=== PATIENT | female | born 1990 | race Caucasian/White ===

== ENCOUNTER → 2022-02-27 | Day surgery (SDC) | payer OTHER ==
[~2022-02-27] MED LIST: COLACE 100MG C100 MG PO; HYDROCODON-ACE1 EAC2 PO; IBUPROFEN800 MG PO; LAMOTRIGINE150 MG PO; PRENATAL VITAM1 EAC3 PO; REXULTI1 MG PO; ROXICODONE5 MG PO; VISTARIL25 MG PO; ZOLOFT100 MG PO
== END | disposition home or self-care (01) ==
LOC: OR 10:15
DX: S82.851A Displaced trimalleolar fracture of right lower leg, initial encounter for closed fracture (principal); X58.XXXA Exposure to other specified factors, initial encounter; G89.18 Other acute postprocedural pain; F17.210 Nicotine dependence, cigarettes, uncomplicated; F41.9 Anxiety disorder, unspecified; F32.A Depression, unspecified; Z79.899 Other long term (current) drug therapy
CPT/HCPCS: 73600; 76000; 84703; C1713; J0690; J1100; J2001; J2250; J2370; J2405; J2704; J2795; J3010

== ENCOUNTER → 2022-03-11 | Outpatient (CLI) | payer OTHER ==
[~2022-03-11] MED LIST changes: +CEPHALEXIN500 MG PO; +ENDOCET 10-3251 EACH PO
== END ==
LOC: KOH-I 12:00
DX: S82.851A Displaced trimalleolar fracture of right lower leg, initial encounter for closed fracture (principal)
CPT/HCPCS: 73700

== ENCOUNTER → 2022-03-13 | Day surgery (SDC) | payer OTHER | END | disposition home or self-care (01) | LOC: OR 07:23 | DX: S82.851A Displaced trimalleolar fracture of right lower leg, initial encounter for closed fracture (principal); F17.210 Nicotine dependence, cigarettes, uncomplicated; X58.XXXA Exposure to other specified factors, initial encounter; Z96.89 Presence of other specified functional implants; Z98.890 Other specified postprocedural states; Z53.9 Procedure and treatment not carried out, unspecified reason | CPT/HCPCS: 36415; 84703; J0690; J7120 ==

== ENCOUNTER → 2022-03-17 | Day surgery (SDC) | payer OTHER | END | disposition home or self-care (01) | LOC: OR 05:24 | DX: S82.851A Displaced trimalleolar fracture of right lower leg, initial encounter for closed fracture (principal); F17.210 Nicotine dependence, cigarettes, uncomplicated; Z88.8 Allergy status to other drugs, medicaments and biological substances | CPT/HCPCS: 73600; 76000; 84703; C1713; J0690; J1100; J1885; J2001; J2250; J2405; J2704; J2795; J3010 ==